=== PATIENT | male | born 1945 | race Caucasian/White ===

== ENCOUNTER → 2023-08-13 14:54 | Outpatient (CLI) | payer OTHER, SELFPAY ==
--- NOTE | 2023-08-13 15:00 | DI.ECHO.S_ITS ---
[place] [facility] +---------+ [facility] : : [address] : : [place] : : [address] : : Phone: [phone] Echocardiogram Report + + :Name: ALEENA JARVIS Study Date: 08/13/2023 Height: 73 in : :[facility] ReadingLocation: Weight: 150 lb : : Gender: Male BSA: 1.9 m2 : :: 1945 Age: 77 yrs BP: 139/78 mmHg: :Reason For Study: CORONARY ARTERY DISEASE : :Ordering Physician: DARIAN, : :IMANI Pardo Performed By: Garrick Blackmon : :Referring: UNSPECIFIED : + + Interpretation Summary Limited quality echo with foreshortening of LV in many apical windows. 1) Normal left ventricular thickness and size with mildly to moderately reduced systolic function (EF 40-45%). 2) Normal right ventricular size and function. 3) No significant valvular abnormalities. 4) No prior Echo available for comparison. Procedure: A two-dimensional transthoracic echocardiogram with color flow and Doppler was performed. The study quality was technically adequate. There is no prior echocardiogram noted for this patient. POOR EKG SIGNAL. Left Ventricle: The left ventricle is normal in size and wall thickness. The ejection fraction is estimated to be 40-45%. There is mild to moderate global hypokinesis of the left ventricle. Right Ventricle: The right ventricle is normal size. The right ventricular systolic function is normal. Atria: The left atrial size is normal. Right atrial size is normal. The interatrial septum grossly appears intact with no obvious evidence for an atrial septal defect. Mitral Valve: The mitral valve is normal. There is no mitral valve stenosis. There is no mitral regurgitation noted. Aortic Valve: The aortic valve is trileaflet. The aortic valve is mildly calcified. There is no aortic valve stenosis. No aortic regurgitation is present. Tricuspid Valve: The tricuspid valve is not well visualized. There is no tricuspid stenosis. There is mild tricuspid regurgitation. The right ventricular systolic pressure is estimated to be at least 33.9 mmHg based on an estimated right atrial pressure of 8 mm Hg. Pulmonic Valve: The pulmonic valve is not well visualized. There is no pulmonic valvular stenosis. There is no pulmonic valvular regurgitation. Great Vessels: The aortic root is normal size. The dimensions of the ascending aorta are normal. The IVC is dilated (diameter is greater than 2.1 cm) yet it collapses greater than 50% with a sniff. This suggests a right atrial pressure of 8 mm Hg. Pericardium/ Pleura There is no pericardial effusion. There is no pleural effusion. MMode/2D Measurements & Calculations LVIDd: 4.0 cm LVOT diam: 2.2 cm LVIDs: 3.1 cm Ao root diam: 3.0 cm FS: 22.1 % asc Aorta Diam: 3.0 cm IVSd: 0.85 cm Ao Arch Diam (Prox Trans): 2.2 cm LVPWd: 0.74 cm LV acuna. diameter/BSA (cm/m^2): 2.1 LV sys. diameter/BSA (cm/m^2): 1.6 LA A2 area: 15.0 cm2 RA long axis: 4.1 cm LA A4 area: 11.1 cm2 RA area: 11.5 cm2 LA length (vol): 4.0 cm RA vol: 27.0 ml LA vol: 35.1 ml RA : 14.2 ml/m2 LA vol index: 18.4 ml/m2 IVC diam: 2.4 cm RVD1 (basal): 2.4 cm RVD2 (mid): 2.0 cm TAPSE: 2.2 cm Doppler Measurements & Calculations Ao V2 max: 109.2 cm/sec LVOT Max Garett: 99.5 cm/sec Ao V2 mean: 78.0 cm/sec LV V1 max P.0 mmHg Ao max P.8 mmHg LV V1 VTI: 19.0 cm Ao mean P.7 mmHg JUDAH(I,D): 3.2 cm2 Ao V2 VTI: 22.3 cm JUDAH(V,D): 3.5 cm2 sev ratio: 0.85 JUDAH indexed to BSA (cm^2/m^2): 1.7 MV E max garett: 56.7 cm/sec TR max garett: 254.6 cm/sec MV A max garett: 76.1 cm/sec TR max P.9 mmHg MV E/A: 0.75 PA V2 max: 93.5 cm/sec Med Peak E' Garett: 6.8 cm/sec PA V2 mean: 67.5 cm/sec E/E' med: 8.4 PA mean P.0 mmHg Lat Peak E' Garett: 8.7 cm/sec PA pr(Accel): 36.2 mmHg E/E' lat: 6.5 E/e' average: 7.4 MV dec time: 0.26 sec SV(LVOT): 72.0 ml Reading Physician:05:43 PM
== END ==
PROVIDERS: Family Provider Internal Medicine; PCP Internal Medicine; Referring Provider Family Medicine; Visit Provider Family Medicine
DX: I07.1 Rheumatic tricuspid insufficiency (principal); I25.10 Atherosclerotic heart disease of native coronary artery without angina pectoris
CPT/HCPCS: 93306